=== PATIENT | male | born 1965 | race Caucasian/White ===

== ENCOUNTER 2023-05-02 09:36 | Observation (INO) | payer OTHER ==
[2023-05-02 10:12] LABS: Absolute Lymphocytes (CBC) 1.6 K/uL (0.7-4.9); Hematocrit 43.2 % (39.6-49.0); MCV 97.9 fL (80-100); MPV 7.4 fL (7.6-11.3); Platelets 174 thou/uL (152-406); RBC Red Blood Cell Count 4.41 M/uL (4.33-5.43)
[2023-05-02 10:17] LABS: Protime INR 1.07
[2023-05-02 10:33] LABS: Albumin 3.7 g/dL (3.4-5.0); Bilirubin Direct 0.1 mg/dL (0-0.2); Bilirubin Indirect, Calculated 0.4 mg/dL (0.2-0.8); Bilirubin Total 0.5 mg/dL (0.2-1.0); Potassium 4.2 mEq/L (3.5-5.1); Protein, Total 6.9 g/dL (6.4-8.2); Troponin High Sensitivity 7.7 pg/mL (<58.9)
--- NOTE | 2023-05-02 11:01 | RAD REPORT ---
EXAM DESCRIPTION: [place]oma Single View05/02/2023 10:40 am CLINICAL HISTORY: Chest pain COMPARISON: 2014 FINDINGS: The lungs appear clear of acute infiltrate. The heart is normal size IMPRESSION: No acute abnormalities displayed
--- NOTE | 2023-05-02 12:31 | ER ---
Nurse's Notes [facility] Name: Afshin Jeffrey Age: 57 yrs Sex: Male : 1965 Arrival Date: 05/02/2023 Time: 09:36 Bed 6 Private MD: Diagnosis: Atherosclerotic heart disease of [place] coronary artery with unstable angina pectoris;Peripheral vascular disease, unspecified;Essential (primary) hypertension Presentation: 05/02 09:45 Chief complaint: Patient states: midsternal chest pain for a few days, worse today, hx iw of 4 cardiac stents. Coronavirus screen: At this time, the client does not indicate any symptoms associated with coronavirus-19. Ebola Screen: Patient negative for fever greater than or equal to 101.5 degrees Fahrenheit, and additional compatible Ebola Virus Disease symptoms Patient denies exposure to infectious person. Patient denies travel to an Ebola-affected area in the 21 days before illness onset. No symptoms or risks identified at this time. Initial Sepsis Screen: Does the patient meet any 2 criteria? No. Patient's initial sepsis screen is negative. Does the patient have a suspected source of infection? No. Patient's initial sepsis screen is negative. Risk Assessment: Do you want to hurt yourself or someone else? Patient reports no desire to harm self or others. Onset of symptoms was April 29, 2023. 09:45 Method Of Arrival: Wheelchair iw 09:45 Acuity: ETELVINA 3 iw Historical: - Allergies: 09:49 Fentanyl; iw - Home Meds: 09:49 aspirin 81 mg Oral capsule daily [Active]; famotidine 20 mg Oral tablet 2 times per day iw [Active]; gabapentin 300 mg oral capsule 2 caps 2 times per day [Active]; losartan 50 mg oral tablet daily [Active]; metoprolol succinate 25 mg oral Tablet, Extended Release 24 hr daily [Active]; nicotine 21 mg/24 hr TD patch, transdermal 24 hours [Active]; nitroglycerin 0.4 mg SL Tablet, Sublingual every 5 minutes [Active]; rosuvastatin 20 mg oral tablet daily [Active]; tizanidine 2 mg oral tablet every day at bedtime [Active]; - Immunization history:: Adult Immunizations not up to date. - Social history:: Smoking status: Patient reports the use of cigarette tobacco products, 2-3 cigarettes per day . Screenin:08 [facility] ED Fall Risk Assessment (Adult) History of falling in the last 3 months, mb9 including since admission No falls in past 3 months (0 pts) Confusion or Disorientation No (0 pts) Intoxicated or Sedated No (0 pts) Impaired Gait No (0 pts) Mobility Assist Device Used No (0 pt) Altered Elimination No (0 pt) Score/Fall Risk Level 0 - 2 = Low Risk Oriented to surroundings, Maintained a safe environment, Educated pt \T\ family on fall prevention, incl call for assistance when getting out of bed. Abuse screen: Denies threats or abuse. Nutritional screening: No deficits noted. Tuberculosis screening: No symptoms or risk factors identified. Assessment: 10:07 General: Appears in no apparent distress. Behavior is calm, cooperative, appropriate mb9 for age. Pain: Complains of pain in chest Pain does not radiate. Quality of pain is described as throbbing, Pain began 1-2 weeks ago. Neuro: Nascimento Agitation-Sedation Scale (RASS): 0 - Alert and Calm Level of Consciousness is awake, alert, obeys commands, Oriented to person, place, time, situation, Appropriate for age. Cardiovascular: Reports chest pain, Heart tones S1 S2 present Patient's skin is warm and dry. Respiratory: Reports shortness of breath Airway is patent Respiratory effort is even, unlabored, Respiratory pattern is regular, symmetrical, Breath sounds are clear bilaterally. GI: Abdomen is round non-distended, Bowel sounds present X 4 quads. Abd is soft and non tender X 4 quads. Reports nausea. : No signs and/or symptoms were reported regarding the genitourinary system. EENT: No signs and/or symptoms were reported regarding the EENT system. Derm: Skin is pink, warm \T\ dry. Musculoskeletal: Range of motion: intact in all extremities. 11:30 Reassessment: No changes from previously documented assessment. Patient and/or family mb9 updated on plan of care and expected duration. Pain level reassessed. Patient is alert, oriented x 3, equal unlabored respirations, skin warm/dry/pink. Vital Signs: 09:45 BP 145 / 103; Pulse 62; Resp 16; Pulse Ox 96% on R/A; Weight 88 kg; Height 5 ft. 10 in. iw ; Pain 810; 11:00 BP 141 / 91; Pulse 49; Resp 18; Pulse Ox 100% on R/A; mb9 12:18 BP 142 / 93; Pulse 50; Resp 16; Pulse Ox 100% on R/A; mb9 09:45 Body Mass Index 27.84 (88.00 kg, 177.8 cm) iw 09:45 Pain Scale: Adult iw ED Course: 09:36 Patient arrived in ED. rg4 09:38 Maria Del Rosario Eddy MD is Attending Physician. gb1 09:43 Brittnee Singer, MARVIN is Primary Nurse. mb9 09:45 EKG done, by ED staff, reviewed by Maria Del Rosario Eddy MD. mb9 09:49 Triage completed. iw 09:54 Arm band placed on. iw 10:07 Inserted saline lock: 18 gauge in right forearm, using aseptic technique. mb9 10:08 Placed in gown. Bed in low position. Call light in reach. Side rails up X 1. Client mb9 placed on continuous cardiac and pulse oximetry monitoring. NIBP monitoring applied. hospital monitor on. 10:09 No provider procedures requiring assistance completed. Patient maintains SpO2 mb9 saturation greater than 95% on room air. 10:41 Chest Single View In Process Unspecified. EDMS 12:28 Philippe Calero is Hospitalizing Provider. gb1 13:40 Patient admitted, IV remains in place. mb9 Administered Medications: No medications were administered Medication: 10:09 VIS not applicable for this client. mb9 Outcome: 12:30 Decision to Hospitalize by Provider. gb1 13:40 Condition: stable mb9 13:40 Instructed on the need for admit, 14:46 Admitted to Tele room 410, with chart, Report called to MARVIN Conley 15:11 Patient left the ED. [email or web address] Signatures: Dispatcher [employer] EDMT So Crowley RN RN iw Garcia, Rubi rg4 Brittnee Singer RN RN mb9 Blocker, Gina, MD MD gb1 Corrections: (The following items were deleted from the chart) 14:46 13:40 Admitted to Med/surg room 219, with chart, Report called to Asher alamo
--- NOTE | 2023-05-02 12:31 | EDPHYS ---
Physician Documentation [facility] Name: Afshin Jeffrey Age: 57 yrs Sex: Male : 1965 Arrival Date: 05/02/2023 Time: 09:36 Bed 6 Private MD: ED Physician Maria Del Rosario Eddy HPI: 05/02 12:30 This 57 yrs old Male presents to ER via Wheelchair with complaints of Chest gb1 Pain. 12:30 57-year-old male with chest pain. He has a history of for coronary artery gb1 stents and 2 stents in his bilateral lower extremities. Patient states it has been more of a pressure-like chest pain in the center of his chest without any radiation. He states he is not short of breath but it is worse with activity and is also intermittent. Patient rates his chest discomfort 7 out of 10.. Historical: - Allergies: 09:49 Fentanyl; iw - Home Meds: 09:49 aspirin 81 mg Oral capsule daily [Active]; famotidine 20 mg Oral tablet 2 times per day iw [Active]; gabapentin 300 mg oral capsule 2 caps 2 times per day [Active]; losartan 50 mg oral tablet daily [Active]; metoprolol succinate 25 mg oral Tablet, Extended Release 24 hr daily [Active]; nicotine 21 mg/24 hr TD patch, transdermal 24 hours [Active]; nitroglycerin 0.4 mg SL Tablet, Sublingual every 5 minutes [Active]; rosuvastatin 20 mg oral tablet daily [Active]; tizanidine 2 mg oral tablet every day at bedtime [Active]; - Immunization history:: Adult Immunizations not up to date. - Social history:: Smoking status: Patient reports the use of cigarette tobacco products, 2-3 cigarettes per day . ROS: 12:30 Cardiovascular: Positive for chest pain, gb1 12:30 All other systems are negative, Exam: 12:30 Constitutional: This is a well developed, well nourished patient who is awake, alert, gb1 and in no acute distress. Head/Face: Normocephalic, atraumatic. Eyes: Pupils equal round and reactive to light, extra-ocular motions intact. Lids and lashes normal. Conjunctiva and sclera are non-icteric and not injected. Cornea within normal limits. Periorbital areas with no swelling, redness, or edema. ENT: Nares patent. No nasal discharge, no septal abnormalities noted. Tympanic membranes are normal and external auditory canals are clear. Oropharynx with no redness, swelling, or masses, exudates, or evidence of obstruction, uvula midline. Mucous membranes moist. Neck: Trachea midline, no thyromegaly or masses palpated, and no cervical lymphadenopathy. Supple, full range of motion without nuchal rigidity, or vertebral point tenderness. No Meningismus. Chest/axilla: Normal chest wall appearance and motion. Nontender with no deformity. No lesions are appreciated. Cardiovascular: Regular rate and rhythm with a normal S1 and S2. No gallops, murmurs, or rubs. Normal PMI, no JVD. No pulse deficits. Respiratory: Lungs have equal breath sounds bilaterally, clear to auscultation and percussion. No rales, rhonchi or wheezes noted. No increased work of breathing, no retractions or nasal flaring. Abdomen/GI: Soft, non-tender, with normal bowel sounds. No distension or tympany. No guarding or rebound. No evidence of tenderness throughout. Back: No spinal tenderness. No costovertebral tenderness. Full range of motion. Skin: Warm, dry with normal turgor. Normal color with no rashes, no lesions, and no evidence of cellulitis. MS/ Extremity: Pulses equal, no cyanosis. Neurovascular intact. Full, normal range of motion. Neuro: Awake and alert, GCS 15, oriented to person, place, time, and situation. Cranial nerves II-XII grossly intact. Motor strength 5/5 in all extremities. Sensory grossly intact. Cerebellar exam normal. Normal gait. Psych: Awake, alert, with orientation to person, place and time. Behavior, mood, and affect are within normal limits. Vital Signs: 09:45 BP 145 / 103; Pulse 62; Resp 16; Pulse Ox 96% on R/A; Weight 88 kg; Height 5 ft. 10 in. iw ; Pain 8/10; 11:00 BP 141 / 91; Pulse 49; Resp 18; Pulse Ox 100% on R/A; mb9 12:18 BP 142 / 93; Pulse 50; Resp 16; Pulse Ox 100% on R/A; mb9 09:45 Body Mass Index 27.84 (88.00 kg, 177.8 cm) iw 09:45 Pain Scale: Adult iw Procedures: 12:30 Patient's EKG is normal sinus rhythm with normal intervals and axis. EKG was completed gb1 at 9:42 AM.. MDM: 09:54 Patient medically screened. gb1 12:30 HEART Score: History: Highly Suspicious (2), ECG: Normal (0), Age: > 45 and < 65 years gb1 (1), Risk Factors: > or = 3 Risk factors for atherosclerotic disease (2), Troponin: < or = 1 x Normal Limit (0), Total Score = 5. 12:33 Consideration of Admission/Observation Patient was admitted/placed on observation. Have [facility] admitted the patient to Dr[facility].. 12:34 Data reviewed: vital signs, nurses notes, lab test result(s), cardiac enzymes, CBC, EKG.[facility] 05/02 10:10 Order name: Basic Metabolic Panel; Complete Time: 10:38 EDTN 05/02 10:10 Order name: Liver (Hepatic) Function; Complete Time: 10:38 EDTN 05/02 10:10 Order name: Troponin High Sensitivity; Complete Time: 10:38 EDMS 05/02 10:10 Order name: NT PRO-BNP; Complete Time: 10:38 EDMS 05/02 10:10 Order name: CBC with Automated Diff; Complete Time: 10:24 EDMS 05/02 10:10 Order name: Protime (+INR); Complete Time: 10:24 EDMS 05/02 11:28 Order name: Troponin High Sensitivity; Complete Time: 11:56 EDMS 05/02 13:39 Order name: Hemoglobin A1c EDTN 05/02 13:39 Order name: T4 Free EDTN 05/02 13:39 Order name: Thyroid Stimulating Hormone EDTN 05/02 13:39 Order name: Basic Metabolic Panel EDTN 05/02 13:39 Order name: Basic Metabolic Panel EDTN 05/02 13:39 Order name: Basic Metabolic Panel EDTN 05/02 13:39 Order name: Basic Metabolic Panel EDTN 05/02 13:39 Order name: CBC with Automated Diff EDMS 05/02 13:39 Order name: CBC with Automated Diff EDMS 05/02 13:39 Order name: CBC with Automated Diff EDMS 05/02 13:39 Order name: CBC with Automated Diff EDMS 05/02 13:39 Order name: Lipid Profile EDTN 05/02 13:39 Order name: Lipid Profile EDMS 05/02 13:39 Order name: Troponin High Sensitivity EDMS 05/02 13:39 Order name: Troponin High Sensitivity EDMS 05/02 13:39 Order name: Troponin High Sensitivity EDMS 05/02 09:59 Order name: Chest Single View; Complete Time: 11:07 EDMS 05/02 13:39 Order name: Echo with Doppler EDMS 05/02 09:38 Order name: EKG; Complete Time: 11:29 gb1 05/02 13:39 Order name: CONS Physician Consult EDMS 05/02 09:38 Order name: Cardiac monitoring; Complete Time: 09:54 gb1 05/02 09:38 Order name: EKG - Nurse/Tech; Complete Time: 09:54 gb1 05/02 09:38 Order name: IV Saline Lock; Complete Time: 10:07 gb1 05/02 09:38 Order name: Labs collected and sent; Complete Time: 10:07 gb1 05/02 09:38 Order name: O2 Per Protocol; Complete Time: 09:54 gb1 05/02 09:38 Order name: O2 Sat Monitoring; Complete Time: 09:54 gb1 Administered Medications: No medications were administered Disposition: 12:30 Co-signature as Attending Physician, Maria Del Rosario Eddy MD. [facility] 12:34 Chart complete. Chart complete. gb1 Disposition Summary: 05/02/23 12:30 Hospitalization Ordered Notes: Hospitalization Status: Inpatient Admission gb1 Provider: Philippe Calero [facility] Location: Telemetry/MedSurg (observation) gb1 Condition: Stable gb1 Problem: new gb1 Symptoms: have worsened gb1 Bed/Room Type: Standard [facility] Room Assignment: 414(05/02/23 14:28) bd Diagnosis - Atherosclerotic heart disease of [place] coronary artery with unstable angina gb1 pectoris - Peripheral vascular disease, unspecified gb1 - Essential (primary) hypertension 1 Forms: - Medication Reconciliation Form gb1 - SBAR form gb1 - Leadership Thank You Letter gb1 Signatures: Dispatcher [employer] EDMS Jodie Cormier Irene, MARVIN RN Maria Del Rosario Douglas MD MD gb Corrections: (The following items were deleted from the chart) 11:40 11:29 Chest Single View+RAD.RAD.BRZ ordered. EDMS EDMS 13:18 11:29 PROTIME (+INR)+COAG.LAB.BRZ ordered. EDMS EDMS 13:19 11:29 CBC+H.LAB.BRZ ordered. EDMS EDMS 13:24 11:29 BASIC METABOLIC PANEL+C.LAB.BRZ ordered. EDMS EDMS 13:24 11:29 HEPATIC FUNCTION+C.LAB.BRZ ordered. EDMS EDMS 13:24 11:29 PROBNP+C.LAB.BRZ ordered. EDMS EDMS 13:24 11:29 Troponin High Sensitivity+C.LAB.BRZ ordered. EDMS EDMS 13:24 11:29 Troponin High Sensitivity+C.LAB.BRZ ordered. EDMS EDMS 14:28 12:30 gb1 bd
[2023-05-02] MEDS ORDERED: HYDRALAZINE HCL 20 MG/ML VIAL IV PRN (13:28)
[2023-05-02] MEDS ORDERED: MORPHINE 4 MG/ML SYR IV PRN (13:28)
[2023-05-02] MEDS ORDERED: NITROGLYCERIN 0.4 MG/TAB SL PRN (13:28)
[2023-05-02] MEDS ORDERED: ACETAMINOPHEN 500 MG TAB PO PRN (13:38)
[2023-05-02] MEDS ORDERED: ACETAMINOPHEN 325 MG TABLET PO PRN (13:39)
[2023-05-02] MEDS ORDERED: NITROGLYCERIN 0.4 MG/HR (10 MG) PATCH TD SCH (14:00)
--- NOTE | 2023-05-02 14:02 | P.HP ---
Certification for Inpatient Patient admitted to: Observation With expected LOS: <2 Midnights Patient will require the following post-hospital care: None Practitioner: I am a practitioner with admitting privileges, knowledge of patient current condition, hospital course, and medical plan of care. Services: Services provided to patient in accordance with Admission requirements found in Title 42 Section 412.3 of the Code of Federal Regulations Patient History Date of Service: 05/02/23 Reason for admission: chest pain r/o [place] History of Present Illness: Afshin Jeffrey is a 57-year-old male with past medical history of hypertension, CAD (stents times 26 July 2022), GERD, 2 stents in bilateral lower extremities (dec 2022), and smoking abuse who presents to the ED complaining of chest pain including his shoulders bilaterally and left arm tingling for a few days but has worsened today. He reports the pain is not the same as when he had his stents p laced in July 2022. Family is at the bedside and reports he experiences a low heart rate while sleeping but does not have pain during this time. His commercial administrator is Dr. Barrera at [facility]. EKG is normal sinus rhythm with normal intervals and axis. Laboratory evaluation troponin 7.7/8.3, BNP 43, sodium 139, potassium 4.2. Initial vitals BP 145 / 103; Pulse 62; Resp 16; Pulse Ox 96% on R/A. Chest xray reports "The lungs appear clear of acute infiltrate. The heart is normal size, No acute abnormalities displayed." Afshin will be admitted to hospitalist service for further evaluation and treatm ent of chest pain rule out [place], unstable angina. Allergies No Known Allergies Allergy (Unverified 05/02/23 15:27) Home Medications: Aspirin [Aspirin EC] 81 mg PO DAILY 05/02/23 Famotidine 20 mg PO BID 05/02/23 Gabapentin 600 mg PO BID 05/02/23 Losartan Potassium 50 mg PO DAILY 05/02/23 Metoprolol Succinate 25 mg PO DAILY 05/02/23 Nicotine [Nicotine Patch] 21 mg TD DAILY 05/02/23 Nitroglycerin 0.4 mg SL Q5MX3, Q15MX1, Q30M PRN 05/02/23 Rosuvastatin Calcium 20 mg PO DAILY 05/02/23 Tizanidine HCl 2 mg PO BEDTIME 05/02/23 Review of Systems Eyes: Unremarkable Respiratory: Unremarkable Cardiovascular: Chest Pain, Light Headedness Gastrointestinal: Unremarkable Genitourinary: Unremarkable Musculoskeletal: Shoulder Pain (bilateral) Integumentary: Unremarkable Neurological: Weakness, Other Physical Examination - Physical Exam General: Alert, In no apparent distress, Oriented x3 HEENT: Atraumatic, Normocephalic, PERRLA Neck: Supple, JVD not distended Respiratory: Clear to auscultation bilaterally, Normal air movement Cardiovascular: No edema, Normal pulses, Regular rate/rhythm, Normal S1 S2 Capillary refill: <2 Seconds Gastrointestinal: Normal bowel sounds, Soft and benign Musculoskeletal: No clubbing, No swelling, No contractures, No erythema Integumentary: No rashes, No breakdown, No significant lesion, No tenderness/swelling Neurological: Normal speech, Normal strength at 5/5 x4 extr, Normal tone - Studies Laboratory Data (last 24 hrs) 05/02/23 05/02/23 05/02/23 10:02 10:02 10:02 WBC 5.30 Hgb 14.9 Hct 43.2 Plt Count 174 PT 11.8 INR 1.07 Sodium 139 Potassium 4.2 BUN 21 H Creatinine 0.98 Glucose 93 Total Bilirubin 0.5 AST 17 ALT 35 Alkaline Phosphatase 81 05/02/23 05/02/23 05/02/23 09:38 09:38 09:38 WBC Cancelled Hgb Cancelled Hct Cancelled Plt Count Cancelled PT Cancelled INR Cancelled Sodium Cancelled Potassium Cancelled BUN Cancelled Creatinine Cancelled Glucose Cancelled Total Bilirubin Cancelled AST Cancelled ALT Cancelled Alkaline Phosphatase Cancelled Assessment and Plan - Plan Assessment and plan Chest pain rule out [place] in patient status post 4 stents Unstable angina -EKG is normal sinus rhythm with normal intervals and axis. No obvious ST elevation or depression -Initial vitals BP 145 / 103; Pulse 62; Resp 16; Pulse Ox 96% on R/A. -Chest xray reports "The lungs appear clear of acute infiltrate. The heart is normal size, No acute abnormalities displayed." - troponin 7.7/8.3, serial pending, BNP 43 - Ordered transthoracic echocardiogram - Consult Cardiology - recommendations appreciated - Symptom control with PRN acetaminophen, nitroglycerin, morphine - Daily aspirin and statin - Lipid panel, A1c, TSH/free T4- pending History of hypertension History of GERD -Restart home medication Smoking abuse -Patient education -Nicotine patch VTE PPx Lovenox Full code LOS 2 days Discharge Plan: Home Plan to discharge in: 24 Hours - Advance Directives Does patient have a Living Will: No Does patient have a Durable POA for Healthcare: No Time Spent Managing Pts Care (In Minutes): 55
[2023-05-02] MEDS: ENOXAPARIN 40 MG/0.4 ML SQ SCH ×2 (15:28→18:19)
[2023-05-02] MEDS: NITROGLYCERIN 0.4 MG/HR (10 MG) PATCH TD SCH (15:29)
[2023-05-02 15:45] VITALS: BMI 27.8
[2023-05-02] MEDS: GABAPENTIN 300 MG CAP PO SCH (20:31)
[2023-05-02] MEDS: ROSUVASTATIN 10 MG TAB PO SCH (20:31)
--- NOTE | 2023-05-02 21:15 | CON ---
Date of Consultation: 05/02/2023 Reason For Consultation: Chest pain. History Of Present Illness: This is a 57-year-old male with complex coronary artery disease, status post multiple stent placement and heart attacks in the past, presents with chest pain, pressure like, left sided. It radiates to the neck and to the shoulder, and it is on and off, and it is getting wo rse and more progressive. 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 The next available appointment was in June, so he pr esented to the emergency room. He at the present time has chest pain that is varying between 3 to 4 in intensity and comes and goes. Past Medical History: Coronary artery disease, status post multiple PCIs; hypertension; and dyslipid emia. Medications: Refer to reconciliation sheet for detailed list. Allergies: NO KNOWN DRUG ALLERGIES. Family History: No premature coronary artery disease or cancer. Social History: He is an ex-smoker. Does not drink or use any drugs. Review of Systems: All systems were reviewed and they were negative except mentioned in the HPI. Physical Examination: Vital Signs: Reviewed. Head and Neck: Pupils are equal, reactive to light. Intact eye movements. No JVD. No cervical lym phadenopathy. Neck is supple. Thyroid is not enlarged. Lungs: Clear to auscultation bilaterally. No rhonchi, rales, or crackles. No accessory muscle use. Heart: Regular rate and rhythm. No extra sounds. Abdomen: Soft, nontender. Bowel sounds positive. No organomegaly. No masses or hernia. No rigidi ty or rebound. Extremities: No edema, clubbing, cyanosis. Intact pulses. Skin: No rash. Neurologic: Alert, awake, oriented x3. No acute focal deficits appreciated. Investigations: Labs were reviewed. Troponins x2 are negative. Creatinine 0.98. Hemoglobin is 14. 9. Assessment/recommendation: 1.Chest pain. No history of coronary artery disease. Pain is typical and not going away. Eases up and gets worse again, and this is likely unstable angina. Keep n.p.o. past midnight. Plan for shona nary angiogram tomorrow. Continue aspirin and nitroglycerin patch 1 inch q.8 hours to the upper ches t as needed for pain control and morphine sulfate. 2.Dyslipidemia. Continue statin. 3.Hypertension. Blood pressure is acceptable. 4.Smoker. The patient was counseled to quit smoking. /APRIL Voice ID: [id number] Report ID: [id number]
[2023-05-02] MEDS ORDERED: NITROGLYCERIN 0.1 MG/HR (2.5 MG) PATCH TD ONE ×2 (21:36→21:40)
[2023-05-03 03:55] LABS: Absolute Lymphocytes (CBC) 2.1 K/uL (0.7-4.9); Hematocrit 39.7 % (39.6-49.0); Lymphocytes % 40.6 % (15.3-44.8); MCV 98.3 fL (80-100); MPV 7.8 fL (7.6-11.3); Platelets 149 thou/uL (152-406); RBC Red Blood Cell Count 4.04 M/uL (4.33-5.43)
[2023-05-03 04:11] LABS: Potassium 3.9 mEq/L (3.5-5.1); Thyroid Stimulating Hormone 1.11 uIU/mL (0.358-3.740)
[2023-05-03] MEDS ORDERED: POTASSIUM CL SA 10 MEQ TAB PO ONE (04:50)
[2023-05-03] MEDS: NITROGLYCERIN 0.4 MG/HR (10 MG) PATCH TD SCH (05:08)
[2023-05-03] MEDS: ASPIRIN EC 81 MG TAB PO SCH (08:21)
[2023-05-03] MEDS: GABAPENTIN 300 MG CAP PO SCH ×2 (08:22→19:55)
[2023-05-03] MEDS ORDERED: NITROGLYCERIN 0.1 MG/HR (2.5 MG) PATCH TD SCH (09:00)
--- NOTE | 2023-05-03 16:05 | P.PN ---
Date of Service: 05/03/23 Gokul Pepe is awake and comfortable this morning Chest pain remains the same as yesterday Plan for C and echocardiogram today ROS 10 point ROS as noted above, otherwise negative Physical Exam General: Alert, In no apparent distress, Oriented x3 HEENT: Atraumatic, Normocephalic, PERRLA Neck: Supple, JVD not distended Respiratory: Clear to auscultation bilaterally, Normal air movement, symmetrical chest wall movement Cardiovascular: No edema, Normal pulses, Regular rate/rhythm, Normal S1 S2, no murmur Capillary refill: <2 Seconds Gastrointestinal: Normal bowel sounds, Soft and benign, nontender Musculoskeletal: No clubbing, No swelling, No contractures, No erythema Integumentary: No rashes, No breakdown, No significant lesion, No tenderness/swelling Neurological: Normal speech, Normal strength at 5/5 x4 extr, Normal tone Vitals Reviewed Problem list Chest pain rule out [place] in patient status post 4 stents Unstable angina History of hypertension History of GERD Smoking abuse Assessment and Plan Chest pain rule out [place] in patient status post 4 stents Unstable angina -EKG is normal sinus rhythm with normal intervals and axis. No obvious ST elevation or depression -Initial vitals BP 145 / 103; Pulse 62; Resp 16; Pulse Ox 96% on R/A. -Chest xray reports "The lungs appear clear of acute infiltrate. The heart is normal size, No acute abnormalities displayed." - serial troponin 7.7/8.3/7.2/8.8, BNP 43 - Ordered transthoracic echocardiogram- result pending - Consult Cardiology - recommendations appreciated - Symptom control with PRN acetaminophen, nitroglycerin, morphine - Daily aspirin and statin - Lipid panel- unremarkable, A1c 5.0, TSH/free T4 1.110/0.75 - [facility] results (05/03) pending History of hypertension History of GERD -Restart home medication- losartan and metoprolol Smoking abuse -Patient education -Nicotine patch VTE PPx Lovenox Full code LOS 2 days Time Spent Managing Pts Care (In Minutes): 20
[2023-05-03] MEDS ORDERED: HEPA 1000U/500MLS 2,000 UNIT/1,000 ML BAG IV ONE (16:14)
[2023-05-03] MEDS ORDERED: LIDOCAINE 1% 20 ML MDV ONE (16:14)
[2023-05-03] MEDS ORDERED: MIDAZOLAM HCL 2 MG/2 ML INJ ONE (16:19)
[2023-05-03] MEDS ORDERED: VERAPAMIL HCL 10 MG/4 ML VIAL IV ONE (16:19)
[2023-05-03] MEDS ORDERED: HEPARIN 5000 UNIT/ML 1 ML VIAL ONE (16:19)
[2023-05-03] MEDS ORDERED: FENTANYL CITR 100 MCG/2 ML ONE (16:19)
[2023-05-03] MEDS ORDERED: ATROPINE SULF 1 MG/10 ML SYR IV ONE (16:19)
[2023-05-03] MEDS ORDERED: ASPIRIN 325 MG TAB ONE (16:20)
[2023-05-03] MEDS ORDERED: CLOPIDOGREL 75 MG TABLET ONE (16:20)
[2023-05-03] MEDS ORDERED: TICAGRELOR 90 MG TABLET PO ONE (16:20)
[2023-05-03] MEDS ORDERED: HEPARIN 10,000 UNIT/10 ML VIAL IV ONE (16:20)
[2023-05-03] MEDS ORDERED: NA CHLORIDE 0.9% 500 ML ONE (16:26)
[2023-05-03] MEDS: METOPROLOL XL 25 MG TAB PO SCH (17:00)
[2023-05-03] MEDS: LOSARTAN POTASSIUM 50 MG TABLET PO SCH (17:00)
--- NOTE | 2023-05-03 17:37 | EKG ---
Test Date: 2023-05-02 Test Time: 09:42:44 Wire Technician: KAYLA MEASUREMENT RESULTS: Intervals: Rate: 60 NM: 164 QRSD: 82 QT: 424 QTc: 424 [place]: P: 77 NM: 164 QRS: 72 T: 84 INTERPRETIVE STATEMENTS: Normal sinus rhythm Normal ECG Compared to ECG 05/05/2014 10:46:04 Sinus bradycardia no longer present Electronically Signed On 05-03-23 17:34:21 TEXTILE COLORIST DYER by Andrews Tam
--- NOTE | 2023-05-03 17:40 | OP ---
Date of Procedure: 05/03/2023 Surgeon: REJI DOMINGUEZ Procedures Performed: 1.Selective coronary angiogram. 2.Left heart catheterization. Indication: Unstable angina. Access: Right radial artery 6-Cuban closed with TR band. Complications: None. Bleeding: Less than 20 mL. Description Of Procedure: After risks, benefits, alternatives were explained, patient agreed to proc edure and signed informed consent. The patient was brought into cardiac catheterization laboratory, prepped and draped in the usual sterile fashion. Then, I accessed right radial artery using [employer] micropuncture kit, placed a 6-Cuban Slender sheath and then I took 5-Cuban [place] 4.0 catheter int o the aortic root over a J-wire, engaged the left main and the right coronary artery, took standard v iews and then catheter was pushed over the wire into the LV, measured the LVEDP. Pullback did not re cord any gradient. Then I removed the catheter and the sheath and placed TR band with good hemostasi s. Findings: 1.Left main; large and normal. 2.LAD; proximal 30% to 40% stenosis, then widely patent stent. The rest of the LAD is normal. Norm al diagonal branches. 3.Left circumflex; very large and dominant. It has in the proximal segment focal 40% to 50% stenosi s and then widely patent stent, and it supplies the entire inferior wall. 4.RCA; it is small and nondominant and MAIL ROOM CLERK, 100% occluded proximally with collaterals from the left. 5.LVEDP is normal at 5 mmHg. Conclusion: 1.Widely patent LAD and left circumflex stent and MAIL ROOM CLERK of proximal RCA with collaterals from the righ t. 2.Moderate coronary artery disease elsewhere. 3.Normal LVEDP. Recommendation: Medical management. SR/MODL Voice ID: [id number] Report ID: [id number]
--- NOTE | 2023-05-03 17:55 | PN ---
Date of Progress Note: 05/03/2023 Subjective: Seen by bedside. He is still having chest pain on and off. Denies having any nausea, v omiting, or diarrhea. No dysuria, polyuria, or urinary urgency. All other systems were reviewed, th ey were negative. Objective: Vital Signs: Reviewed. Head and Neck: Pupils are equal, reactive to light. Intact eye movements. No JVD. No cervical lym phadenopathy. Neck is supple. Thyroid is not enlarged. Lungs: Clear to auscultation bilaterally. No rhonchi, wheezing, or crackles. No accessory muscle u se. Heart: Regular rate and rhythm. No extra sounds. Abdomen: Soft, nontender. Bowel sounds positive. No organomegaly. No masses or hernia. No rigidi ty or rebound. Extremities: No edema, clubbing, or cyanosis. Intact pulses. Skin: No rash or nodule. Neurological: Alert, awake, oriented x3. No acute focal deficits appreciated. Lymph Nodes: No cervical or axillary lymphadenopathy. Investigations: Labs were reviewed. Troponins are negative. Assessment And Recommendation: 1.Unstable angina. Negative troponins. I did a coronary angiogram on him and his heart is well vas cularized. No need for intervention. I recommend to start Imdur 30 mg daily and also search for oth er causes of chest pain, specifically rule out pulmonary embolism or GI as a cause of his symptoms. 2.Peripheral vascular disease, status post intervention in the past and he is asymptomatic. 3.Dyslipidemia. Recommend Lipitor 40 mg q.h.s. From Cardiology standpoint, patient can be released and follow up as an outpatient. /APRIL Voice ID: [id number] Report ID: [id number]
[2023-05-03] MEDS: ROSUVASTATIN 10 MG TAB PO SCH (19:55)
[2023-05-04 00:21] VITALS: O2SAT 94
--- NOTE | 2023-05-04 07:00 | ECHO ---
HEIGHT: 5 ft 10 in WEIGHT: 194 lb 0 oz DATE OF STUDY: 05/03/[address]: Ashley Almanzar NP 2-DIMENSIONAL: YES M.MODE: YES DOPPLER: YES COLOR FLOW: YES TDS: PORTABLE: YES DEFINITY: BUBBLE STUDY: DIAGNOSIS: CHEST PAIN CARDIAC HISTORY: CATHERIZATION: SURGERY: PROSTHETIC VALVE: PACEMAKER: MEASUREMENTS (cm) DIASTOLIC (NORMALS) SYSTOLIC (NORMALS) IVSd 1.3 (0.6-1.2) LA Diam (1.9-4.0) LVEF 73% LVIDd 4.6 (3.5-5.7) LVIDs 2.6 (2.0-3.5) %FS 42% LVPWd 1.2 (0.6-1.2) Ao Diam 3.2 (2.0-3.7) 2 DIMENSIONAL ASSESSMENT: RIGHT ATRIUM: NORMAL LEFT ATRIUM: NORMAL RIGHT VENTRICLE: NORMAL LEFT VENTRICLE: LEFT VENTRICULAR HYPERTROPHY TRICUSPID VALVE: NORMAL MITRAL VALVE: NORMAL PULMONIC VALVE: NORMAL AORTIC VALVE: NORMAL PERICARDIAL EFFUSION: NONE AORTIC ROOT: NORMAL LEFT VENTRICULAR WALL MOTION: NORMAL DOPPLER/COLOR FLOW: NORMAL COMMENTS: 1. NORMAL LEFT VENTRICULAR EJECTION FRACTION 60-65% 2. NORMAL WALL MOTION\ 3. GRADE I DIASTOLIC DYSFUNCTION 4. MILD CONCENTRIC LEFT VENTRICULAR HYPERTROPHY TECHNOLOGIST: MARLON HERRING
[2023-05-04 07:21] LABS: Absolute Lymphocytes (CBC) 1.5 K/uL (0.7-4.9); Hematocrit 40.9 % (39.6-49.0); Lymphocytes % 34.4 % (15.3-44.8); MCV 96.5 fL (80-100); MPV 7.8 fL (7.6-11.3); Platelets 170 thou/uL (152-406); RBC Red Blood Cell Count 4.24 M/uL (4.33-5.43)
[2023-05-04 07:29] LABS: Potassium 4.2 mEq/L (3.5-5.1)
[2023-05-04] MEDS: ENOXAPARIN 40 MG/0.4 ML SQ SCH (08:35)
[2023-05-04] MEDS: METOPROLOL XL 25 MG TAB PO SCH (08:35)
[2023-05-04] MEDS: ASPIRIN EC 81 MG TAB PO SCH (08:35)
[2023-05-04] MEDS: LOSARTAN POTASSIUM 50 MG TABLET PO SCH (08:36)
[2023-05-04] MEDS: NITROGLYCERIN 0.4 MG/HR (10 MG) PATCH TD SCH (08:36)
[2023-05-04] MEDS: GABAPENTIN 300 MG CAP PO SCH (08:36)
--- NOTE | 2023-05-04 09:33 | RAD REPORT ---
EXAM DESCRIPTION: CT - Chest Angio - 05/04/2023 8:27 am CLINICAL HISTORY: Chest pain COMPARISON: May 02, 2023 chest x-ray TECHNIQUE: Dynamically enhanced axial 3 mm thick images of the chest were obtained during administra tion of 100 mL Isovue 370 IV contrast. Coronal and oblique reconstruction images were generated and r eviewed. Exam utilizes a protocol for optimal evaluation of pulmonary arterial tree. Maximum intensity projections 3D imaging was utilized All CT scans are performed using dose optimization technique as appropriate and may include automated exposure control or mA/KV adjustment according to patient size. FINDINGS: A pulmonary embolus is not seen. A thoracic aortic aneurysm is not noted. A pleural effusion is not seen. A pericardial effusion is not seen. A lung consolidation is not present. Mild paraseptal emphysema IMPRESSION: Negative for a pulmonary embolism.
--- NOTE | 2023-05-04 11:20 | P.DS ---
Admission Date: 05/02/23 Discharge Date: 05/04/23 Disposition: ROUTINE DISCHARGE Discharge Condition: GOOD Reason for Admission: chest pain r/o NH Brief History of Present Illness: Problem list Chest pain rule out NH in patient status post 4 stents Unstable angina History of hypertension History of GERD Smoking abuse Afshin Jeffrey is a 57-year-old male with past medical history of hypertension, CAD (stents times 26 July 2022), GERD, 2 stents in bilateral lower extremities (dec 2022), and smoking abuse who presents to the ED complaining of chest pain including his shoulders bilaterally and left arm tingling for a few days but has worsened today. He reports the pain is not the same as when he had his stents placed in July 2022. Family is at the bedside and reports he experiences a low heart rate while sleeping but does not have pain during this time. 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 Barrera at [facility]. EKG is normal sinus rhythm with normal intervals and axis. Laboratory evaluation troponin 7.7/8.3, BNP 43, sodium 139, potassium 4.2. Initial vitals BP 145 / 103; Pulse 62; Resp 16; Pulse Ox 96% on R/A. Chest xray reports "The lungs appear clear of acute infiltrate. The heart is normal size, No acute abnormalities displayed." Afshin will be admitted to hospitalist service for further evaluation and treatment of chest pain rule out NH, unstable angina. Hospital Course: Afshin Jeffrey is a pleasant 57 year old male with a past medical history significant for hypertension, CAD (stents times 26 July 2022), GERD, 2 stents in bilateral lower extremities (dec 2022), and smoking abuse who was admitted to the [facility] on 05/02/23 for chest pain r/o NH. Afshin Jeffrey presented to the ED with complaints of chest pain including his shoulders bilaterally and left arm is tingling for approximately a few days but has become worse the day of arrival. Troponins were found negative, BNP was 43, EKG showing normal sinus rhythm. Dr. Tam was consulted for further recommendations. Echo revealed normal EF, grade 1 diastolic dysfunction, normal wall motion. CT chest angio reporting negative for a pulmonary embolism. Dr. Tam performed a left heart cath showing his heart is well vascularized requiring no intervention. Dr. Tam recommends Imdur 30 mg daily and has cleared him for discharge. Afshin is hemodynamically stable, ambulating independently, tolerating p.o. diet, tolerating left heart cath well, and is ready for discharge. Education provided for smoking cessation. On 05/04/23, Afshin was seen on morning rounds and deemed medically stable for discharge. Afshin was discharged with instructions to schedule follow-up appointments with PCP and Dr. Tam. Afshin was provided prescriptions for Imdur. The patient and family members were given the opportunity to ask questions and reported no further questions. Furthermore, all questions were answered to the best of my ability. A copy of this discharge summary will be sent to the above providers to facilitate continuity of care. Today, I personally spent 50 minutes with Afshin, of which greater than 50% of the time was spent in patient education, counseling, and coordination of care as described above. Physical Exam General: Alert, In no apparent distress, Oriented x3 HEENT: Atraumatic, Normocephalic, PERRLA Neck: Supple, JVD not distended Respiratory: Clear to auscultation bilaterally, Normal air movement, symmetrical chest wall movement Cardiovascular: No edema, Normal pulses, Regular rate/rhythm, Normal S1 S2, no murmur Capillary refill: <2 Seconds Gastrointestinal: Normal bowel sounds, Soft and benign, nontender Musculoskeletal: No clubbing, No swelling, No contractures, No erythema Integumentary: No rashes, No breakdown, No significant lesion, No tenderness/swelling Neurological: Normal speech, Normal strength at 5/5 x4 extr, Normal tone Vital Signs/Physical Exam: Temp Pulse Resp BP Pulse Ox 98.0 F 58 17 176/90 H 93 05/04/23 08:00 05/04/23 08:00 05/04/23 08:00 05/04/23 08:35 05/04/23 08:00 Laboratory Data at Discharge: WBC 4.50 thou/uL (4.3-10.9) 05/04/23 06:10 Hgb 14.4 g/dL (13.6-17.9) 05/04/23 06:10 Hct 40.9 % (39.6-49.0) 05/04/23 06:10 Plt Count 170 thou/uL (152-406) 05/04/23 06:10 PT 11.8 SECONDS (9.5-12.5) 05/02/23 10:02 INR 1.07 05/02/23 10:02 Sodium 139 mEq/L (136-145) 05/04/23 06:10 Potassium 4.2 mEq/L (3.5-5.1) 05/04/23 06:10 BUN 20 mg/dL (7-18) H 05/04/23 06:10 Creatinine 0.92 mg/dL (0.70-1.30) 05/04/23 06:10 Glucose 95 mg/dL (74-106) 05/04/23 06:10 Total Bilirubin 0.5 mg/dL (0.2-1.0) 05/02/23 10:02 AST 17 U/L (15-37) 05/02/23 10:02 ALT 35 U/L (16-61) 05/02/23 10:02 Alkaline Phosphatase 81 U/L (45-117) 05/02/23 10:02 Triglycerides 103 mg/dL (<150) 05/02/23 11:16 Cholesterol 111 mg/dL (<200) 05/02/23 11:16 HDL Cholesterol 40 mg/dL (40-60) 05/02/23 11:16 Cholesterol/HDL Ratio 2.78 05/02/23 11:16 Home Medications: Aspirin [Aspirin EC] 81 mg PO DAILY 05/02/23 Famotidine 20 mg PO BID 05/02/23 Gabapentin 600 mg PO BID 05/02/23 Losartan Potassium 50 mg PO DAILY 05/02/23 Metoprolol Succinate 25 mg PO DAILY 05/02/23 Nicotine [Nicotine Patch] 21 mg TD DAILY 05/02/23 Nitroglycerin 0.4 mg SL Q5MX3, Q15MX1, Q30M PRN 05/02/23 Rosuvastatin Calcium 20 mg PO DAILY 05/02/23 Tizanidine HCl 2 mg PO BEDTIME 05/02/23 Isosorbide Mononitrate [Isosorbide Mononitrate ER] 30 mg PO DAILY 30 Days #30 tab 05/04/23 Nitroglycerin [Nitrostat*] 0.4 mg SL UD PRN tab 05/04/23 Rosuvastatin [Crestor*] 40 mg PO BEDTIME tab 05/04/23 New Medications: Isosorbide Mononitrate [Isosorbide Mononitrate ER] 30 mg PO DAILY 30 Days #30 tab Physician Discharge Instructions: 1. Please call and schedule a follow-up appointment with your PCP in 3-5 days - Please follow-up with your PCP for medication refills/adjustments 2. Please call and schedule a follow-up appointment with Dr. Tam in one week for continued medical management 3. Continue heart healthy diet 4. New medication Imdur [address] Rodriguez's recommendation 5. 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 Return to ED if symptoms worsen Diet: AHA Activity: No lifting more than 10 lbs Followup: Ethan Khan DO [Primary Care Provider] - (F/U in 3-5 days) Andrews Tam MD [ACTIVE - CAN ADMIT] - 1 Week Time spent managing pt's care (in minutes): 50
[2023-05-04 14:36] VITALS: BP 179/103; TEMP 97
== END 2023-05-04 13:35 | disposition home or self-care (01) ==
LOC: ER 09:36 → ERHOLD 13:40 → 4TH 14:45
PROVIDERS: ADMIT Internal Medicine; ATTEND Internal Medicine
PROC: 4A023N7 Measurement of Cardiac Sampling and Pressure, Left Heart, Percutaneous Approach (ICD-10-PCS; principal; 2023-05-03)
PROC: B2111ZZ Fluoroscopy of Multiple Coronary Arteries using Low Osmolar Contrast (ICD-10-PCS; 2023-05-03)
DX: I25.110 Atherosclerotic heart disease of native coronary artery with unstable angina pectoris (principal); I25.82 Chronic total occlusion of coronary artery; I73.9 Peripheral vascular disease, unspecified; I10 Essential (primary) hypertension; E78.5 Hyperlipidemia, unspecified; K21.9 Gastro-esophageal reflux disease without esophagitis; Z95.5 Presence of coronary angioplasty implant and graft; Z95.828 Presence of other vascular implants and grafts; F17.210 Nicotine dependence, cigarettes, uncomplicated; Z71.6 Tobacco abuse counseling; Z79.82 Long term (current) use of aspirin; Z79.899 Other long term (current) drug therapy; Z88.8 Allergy status to other drugs, medicaments and biological substances
CPT/HCPCS: 93005; 93306; 85025 ×3; 80048 ×3; 36415 ×2; 85610; 80061; 85379; 80076; 84443; 83036; 84484 ×4; 84439; 83880; 71275; 71045; 93458; 76937; 99285; Q9967; C1893; Q9966; J1644; J0360; J2001; J1650; J2250; J3010; J7040; G0378 ×4; 99152; 99153; J0461

== ENCOUNTER 2024-05-20 10:00 | Inpatient (IN) | payer OTHER ==
[2024-05-20] MEDS ORDERED: NA CHLORIDE 0.9% 1,000 ML ONE (11:06)
[2024-05-20] MEDS ORDERED: FAMOTIDINE 20 MG/2 ML VIAL IV ONE (11:06)
[2024-05-20 11:13] LABS: Absolute Lymphocytes (CBC) 0.9 K/uL (0.7-4.9); Absolute Monocytes 0.3 K/uL (0.1-1.3); Absolute Neutrophil 4.9 K/uL (1.8-8.0); Basophils % 0.3 % (0-1.3); Eosinophils % 0.6 % (0-4.4); Hematocrit 36.9 % (39.6-49.0); Hemoglobin 13.1 g/dL (13.6-17.9); Lymphocytes % 14.1 % (15.3-44.8); MCH 34.4 pg (27.0-35.0); MCHC 35.4 g/dL (32.0-36.0); MCV 97.3 fL (80-100); MPV 7.5 fL (7.6-11.3); Monocytes % 4.5 % (3.3-12.3); Neutrophils % 80.5 % (41.7-73.7); Nucleated Red Blood Cells % 0.1 % (0-0); Platelets 150 thou/uL (152-406); RBC Red Blood Cell Count 3.79 M/uL (4.33-5.43); Red Cell Distribution Width 13.3 % (12.1-15.2)
[2024-05-20 11:19] LABS: PT Prothrombin Time 13.1 SECONDS (9.4-12.5); Protime INR 1.25
[2024-05-20 11:34] LABS: Albumin 3.3 g/dL (3.4-5.0); Albumin/Globulin Ratio 1.1 (1.1-1.8); Anion Gap 7.1 mEq/L (5.0-15.0); Bilirubin Direct 0.2 mg/dL (0-0.2); Bilirubin Indirect, Calculated 0.4 mg/dL (0.2-0.8); Bilirubin Total 0.6 mg/dL (0.2-1.0); Globulin 2.9 g/dL (2.3-3.5); Magnesium 2.1 mg/dL (1.6-2.4); Potassium 4.1 mEq/L (3.5-5.1); Protein, Total 6.2 g/dL (6.4-8.2); Troponin High Sensitivity 4.9 pg/mL (<58.9)
--- NOTE | 2024-05-20 11:44 | RAD REPORT ---
EXAMINATION: ONE VIEW CHEST XR CLINICAL INDICATION: COUGH TECHNIQUE: Frontal chest projection is submitted. Examination is limited by patient positioning and t echnique. COMPARISON: 05/02/2023 FINDINGS: The lungs are well inflated and clear. The heart is normal in size. No displaced fractures identified . IMPRESSION: No acute intrathoracic abnormalities.
--- NOTE | 2024-05-20 11:50 | ER ---
Nurse's Notes [facility] Name: fAshin Jeffrey Age: 58 yrs Sex: Male : 1965 Arrival Date: 05/20/2024 Time: 10:00 Bed 18 Private MD: Diagnosis: Hypotension, unspecified;Weakness;Syncope Near;Bradycardia, unspecified Presentation: 05/20 10:15 Chief complaint: EMS states: overall feeling of not feeling good, pain i n shoulder, kj2 difficulty breathing. Coronavirus screen: Client denies travel out of the [place] in the last 14 days. Ebola Screen: No symptoms or risks identified at this time. Initial Sepsis Screen: Does the patient meet any 2 criteria? No. Patient's initial sepsis screen is negative. Does the patient have a suspected source of infection? No. Patient's initial sepsis screen is negative. Risk Assessment: Do you want to hurt yourself or someone else? Patient reports no desire to harm self or others. Onset of symptoms was May 20, 2024. 10:15 Method Of Arrival: EMS: [facility] kj2 10:15 Acuity: ETELVINA 3 kj2 Triage Assessment: 10:15 General: Appears in no apparent distress. Behavior is calm, cooperative, quiet. Pain: kj2 Complains of pain in left shoulder Pain currently is 4 out of 10 on a pain scale. Neuro: Level of Consciousness is awake, alert, obeys commands, Oriented to person, place, time, situation. Cardiovascular: Patient's skin is warm and dry. Respiratory: Airway is patent Respiratory effort is unlabored. GI: No signs and/or symptoms were reported involving the gastrointestinal system. : No signs and/or symptoms were reported regarding the genitourinary system. Historical: - Allergies: 10:48 Fentanyl; kj2 - Immunization history:: Adult Immunizations unknown. - Infectious Disease History:: Denies. - Social history:: Smoking status: Patient reports the use of cigarette tobacco products, unknown amount. Assessment: 10:15 General: see triage assessment. kj2 11:15 Reassessment: Patient appears in no apparent distress at this time. Patient and/or kj2 family updated on plan of care and expected duration. Pain level reassessed. Patient is alert, oriented x 3, equal unlabored respirations, skin warm/dry/pink. 13:25 Reassessment: Patient appears in no apparent distress at this time. Patient and/or kj2 family updated on plan of care and expected duration. Pain level reassessed. Patient is alert, oriented x 3, equal unlabored respirations, skin warm/dry/pink. 14:22 Reassessment: Patient appears in no apparent distress at this time. Patient and/or kj2 family updated on plan of care and expected duration. Pain level reassessed. Patient is alert, oriented x 3, equal unlabored respirations, skin warm/dry/pink. 15:15 Reassessment: Patient appears in no apparent distress at this time. Patient and/or kj2 family updated on plan of care and expected duration. Pain level reassessed. Patient is alert, oriented x 3, equal unlabored respirations, skin warm/dry/pink. Vital Signs: 10:15 BP 116 / 80; Pulse 54; Resp 20; Temp 98; Pulse Ox 97% on R/A; Weight 86.18 kg; Height 5 kj2 ft. 10 in. ; Pain 4/10; 13:25 BP 109 / 78; Pulse 52; Resp 20; Pulse Ox 97% on R/A; kj2 15:15 BP 126 / 72; Pulse 48; Resp 18; Temp 98; Pulse Ox 99% on R/A; kj2 10:15 Body Mass Index 27.26 (86.18 kg, 177.8 cm) kj2 10:15 Pain Scale: Adult kj2 ED Course: 10:30 Patient arrived in ED. ss 10:37 Owen Renee MD is Attending Physician. jose carlos 10:43 Valeria Victoria, RN is Primary Nurse. kj2 10:48 Triage completed. kj2 11:34 XRAY Chest (1 view) In Process Unspecified. EDMS 11:44 CT Head Brain wo Cont In Process Unspecified. EDMS 11:48 Gonzalez Woodson is Hospitalizing Provider. jose carlos 11:53 CT Chest For PE Angio In Process Unspecified. EDMS 11:55 CT Abd/Pelvis - IV Contrast Only In Process Unspecified. EDMS Administered Medications: 11:18 Drug: NS 0.9% IV 1000 ml IV at 1 bolus Per protocol; to be given as a bolus over 60 kj2 minutes Route: IV; Rate: 1 bolus; Site: right antecubital; 14:20 Follow up: IV Status: Completed infusion; IV Intake: 1000ml kj2 11:19 Drug: Famotidine IVP 20 mg IVP once; dilute with 10 mL 0.9% NaCl; give over 2 minutes kj2 Route: IVP; Site: right antecubital; 14:21 Follow up: Response: No adverse reaction kj2 12:20 Drug: NS 0.9% IV 1000 ml IV at 1 bolus Per protocol; to be given as a bolus over 60 kj2 minutes Route: IV; Rate: 1 bolus; Site: right antecubital; 14:22 Follow up: IV Status: Completed infusion; IV Intake: 1000ml kj2 Intake: 14:20 IV: 1000ml; Total: 1000ml. kj2 14:22 IV: 1000ml; Total: 2000ml. kj2 Outcome: 11:50 Decision to Hospitalize by Provider. jose carlos 13:00 Admitted to ER Hold. [facility] for [facility] documentation. kj2 13:00 Condition: stable kj2 13:00 Discharge instructions given to patient, Instructed on Admission 18:53 Patient left the ED. ss Signatures: Dispatcher [employer] EDMI Owen Renee MD MD cha Blanchard, Shelby, RN RN Valeria Victoria, MARVIN RN kj2 Corrections: (The following items were deleted from the chart) 11:27 11:19 NS 0.9% IV 1000 ml IV at 1 bolus in right antecubital kj2 kj2
--- NOTE | 2024-05-20 11:50 | EDPHYS ---
Physician Documentation [facility] Name: Afshin Jeffrey Age: 58 yrs Sex: Male : 1965 Arrival Date: 05/20/2024 Time: 10:00 Bed 18 Private MD: ED Physician Owen Renee HPI: 05/20 10:46 This 58 yrs old Male presents to ER via Unassigned with complaints of jose carlos Breathing Difficulty. 10:46 The patient has shortness of breath with light activity. jose carlos Historical: - Allergies: 10:48 Fentanyl; kj2 - Immunization history:: Adult Immunizations unknown. - Infectious Disease History:: Denies. - Social history:: Smoking status: Patient reports the use of cigarette tobacco products, unknown amount. ROS: 10:48 Constitutional: Negative for fever, chills, and weight loss, Eyes: Negative for injury, jose carlos pain, redness, and discharge, ENT: Negative for injury, pain, and discharge, Neck: Negative for injury, pain, and swelling, Cardiovascular: Negative for chest pain, palpitations, and edema, Abdomen/GI: Negative for abdominal pain, nausea, vomiting, diarrhea, and constipation, Back: Negative for injury and pain, : Negative for injury, bleeding, discharge, and swelling, MS/Extremity: Negative for injury and deformity, Skin: Negative for injury, rash, and discoloration, Psych: Negative for depression, anxiety, suicide ideation, homicidal ideation, and hallucinations, Allergy/Immunology: Negative for hives, rash, and allergies, Endocrine: Negative for neck swelling, polydipsia, polyuria, polyphagia, and marked weight changes, Hematologic/Lymphatic: Negative for swollen nodes, abnormal bleeding, and unusual bruising, 10:48 Respiratory: Positive for cough, shortness of breath, 10:48 Neuro: Positive for near syncope, weakness, Exam: 10:48 Constitutional: This is a well developed, well nourished patient who is awake, alert, jose acrlos and in no acute distress. Head/Face: Normocephalic, atraumatic. Eyes: Pupils equal round and reactive to light, extra-ocular motions intact. Lids and lashes normal. Conjunctiva and sclera are non-icteric and not injected. Cornea within normal limits. Periorbital areas with no swelling, redness, or edema. ENT: Nares patent. No nasal discharge, no septal abnormalities noted. Tympanic membranes are normal and external auditory canals are clear. Oropharynx with no redness, swelling, or masses, exudates, or evidence of obstruction, uvula midline. Mucous membranes moist. Neck: Trachea midline, no thyromegaly or masses palpated, and no cervical lymphadenopathy. Supple, full range of motion without nuchal rigidity, or vertebral point tenderness. No Meningismus. Chest/axilla: Normal chest wall appearance and motion. Nontender with no deformity. No lesions are appreciated. Cardiovascular: Regular rate and rhythm with a normal S1 and S2. No gallops, murmurs, or rubs. Normal PMI, no JVD. No pulse deficits. Respiratory: Lungs have equal breath sounds bilaterally, clear to auscultation and percussion. No rales, rhonchi or wheezes noted. No increased work of breathing, no retractions or nasal flaring. Abdomen/GI: Soft, non-tender, with normal bowel sounds. No distension or tympany. No guarding or rebound. No evidence of tenderness throughout. Back: No spinal tenderness. No costovertebral tenderness. Full range of motion. Male : Normal genitalia with no discharge or lesions. Skin: Warm, dry with normal turgor. Normal color with no rashes, no lesions, and no evidence of cellulitis. MS/ Extremity: Pulses equal, no cyanosis. Neurovascular intact. Full, normal range of motion., bilateral aka Neuro: Awake and alert, GCS 15, oriented to person, place, time, and situation. Cranial nerves II-XII grossly intact. Motor strength 5/5 in all extremities. Sensory grossly intact. Cerebellar exam normal. Normal gait. Psych: Awake, alert, with orientation to person, place and time. Behavior, mood, and affect are within normal limits. 10:48 ECG was reviewed by the Attending Physician. 10:50 ECG was reviewed by the Attending Physician. jose carlos Vital Signs: 10:15 BP 116 / 80; Pulse 54; Resp 20; Temp 98; Pulse Ox 97% on R/A; Weight 86.18 kg; Height 5 kj2 ft. 10 in. ; Pain 4/10; 13:25 BP 109 / 78; Pulse 52; Resp 20; Pulse Ox 97% on R/A; kj2 15:15 BP 126 / 72; Pulse 48; Resp 18; Temp 98; Pulse Ox 99% on R/A; kj2 10:15 Body Mass Index 27.26 (86.18 kg, 177.8 cm) kj2 10:15 Pain Scale: Adult kj2 MDM: 10:37 Medical Screening Exam initiated jose carlos 10:50 Differential diagnosis: Anemia Anxiety Reaction asthma, Bronchitis CHF exacerbation, jose carlos Chronic Obstructive Pulmonary Disease Myocardial Infarction pneumonia, Pneumothorax pulmonary edema, Pulmonary Embolism reactive airway disease, Sepsis Unstable Angina. Antibiotic administration: Not indicated. Immunization status: Influenza vaccine: within last 5 years. Data reviewed: vital signs, nurses notes, EMS record, lab test result(s), EKG, radiologic studies, CT scan, plain films. Consideration of Admission/Observation Escalation of care including admission/observation considered. I considered the following discharge prescriptions or medication management in the emergency department Medications were administered in the Emergency Department. See MAR. Test considered but Not performed: Ultrasound no 2 d echo. 05/20 10:42 Order name: Basic Metabolic Panel; Complete Time: 11:43 [facility] 05/20 10:42 Order name: CBC with Diff; Complete Time: 11:43 [facility] 05/20 10:42 Order name: LFT's; Complete Time: 11:43 [facility] 05/20 10:42 Order name: Magnesium; Complete Time: 11:43 [facility] 05/20 10:42 Order name: NT PRO-BNP; Complete Time: 11:43 [facility] 05/20 10:42 Order name: PT-INR; Complete Time: 11:43 [facility] 05/20 10:42 Order name: Troponin HS; Complete Time: 11:43 [facility] 05/20 10:42 Order name: Urinalysis w/ reflexes; Complete Time: 14:27 [facility] 05/20 10:42 Order name: Lipase; Complete Time: 11:43 [facility] 05/20 10:42 Order name: Type And Screen; Complete Time: 14:27 [facility] 05/20 12:05 Order name: ABO/RH no charge; Complete Time: 12:15 [facility] 05/20 14:32 Order name: PTT, Activated Partial Thromb; Complete Time: 15:45 [facility] 05/20 14:32 Order name: Basic Metabolic Panel [facility] 05/20 14:32 Order name: Basic Metabolic Panel [facility] 05/20 14:32 Order name: Basic Metabolic Panel [facility] 05/20 14:32 Order name: Basic Metabolic Panel [facility] 05/20 14:32 Order name: CBC with Automated Diff [facility] 05/20 14:32 Order name: CBC with Automated Diff [facility] 05/20 14:32 Order name: CBC with Automated Diff [facility] 05/20 14:32 Order name: CBC with Automated Diff [facility] 05/20 14:32 Order name: Lipid Profile [facility] 05/20 14:32 Order name: Lipid Profile; Complete Time: 15:45 [facility] 05/20 14:32 Order name: Troponin High Sensitivity [facility] 05/20 14:32 Order name: Troponin High Sensitivity; Complete Time: 15:45 [facility] 05/20 14:32 Order name: Troponin High Sensitivity [facility] 05/20 14:32 Order name: Troponin High Sensitivity [facility] 05/20 10:42 Order name: XRAY Chest (1 view); Complete Time: 12:15 [facility] 05/20 10:42 Order name: CT Head Brain wo Cont; Complete Time: 12:15 [facility] 05/20 10:48 Order name: CT Chest For PE Angio; Complete Time: 12:15 [facility] 05/20 10:48 Order name: CT Abd/Pelvis - IV Contrast Only; Complete Time: 12:15 [facility] 05/20 14:32 Order name: Echo with Doppler [facility] 05/20 14:32 Order name: CONS Physician Consult [facility] 05/20 10:42 Order name: Cardiac monitoring; Complete Time: 11:56 [facility] 05/20 10:42 Order name: EKG - Nurse/Tech; Complete Time: 11:56 [facility] 05/20 10:42 Order name: IV Saline Lock; Complete Time: 11:56 [facility] 05/20 10:42 Order name: Labs collected and sent; Complete Time: 11:56 [facility] 05/20 10:42 Order name: O2 Per Protocol; Complete Time: 11:56 [facility] 05/20 10:42 Order name: O2 Sat Monitoring; Complete Time: 11: [facility] 05/20 11:10 Order name: Labs - recollect needed: recollect type and screen reband pt; Complete bd Time: 11:27 EC:50 Rate is 54 beats/min. Rhythm is regular. QRS [place] is Normal. [place] interval is normal. QRS jose carlos interval is normal. QT interval is normal. No Q waves. T waves are Normal. No ST changes noted. Clinical impression: Sinus bradycardia and No evidence of ischemia. Interpreted by me. Reviewed by me. Administered Medications: 11:18 Drug: NS 0.9% IV 1000 ml IV at 1 bolus Per protocol; to be given as a bolus over 60 kj2 minutes Route: IV; Rate: 1 bolus; Site: right antecubital; 14:20 Follow up: IV Status: Completed infusion; IV Intake: 1000ml kj2 11:19 Drug: Famotidine IVP 20 mg IVP once; dilute with 10 mL 0.9% NaCl; give over 2 minutes kj2 Route: IVP; Site: right antecubital; 14:21 Follow up: Response: No adverse reaction kj2 12:20 Drug: NS 0.9% IV 1000 ml IV at 1 bolus Per protocol; to be given as a bolus over 60 kj2 minutes Route: IV; Rate: 1 bolus; Site: right antecubital; 14:22 Follow up: IV Status: Completed infusion; IV Intake: 1000ml kj2 Disposition Summary: 05/20/24 11:50 Hospitalization Ordered Notes: Hospitalization Status: Observation jose carlos Provider: Gonzalez Woodson cha Condition: Fair jose carlos Problem: new jose carlos Symptoms: have improved jose carlos Bed/Room Type: Standard jose carlos Location: Telemetry/MedSurg (observation)(05/20/24 15:45) bd Room Assignment: 209(05/20/24 15:45) bd Diagnosis - Hypotension, unspecified jose carlos - Weakness jose carlos - Syncope Near jose carlos - Bradycardia, unspecified jose carlos Forms: - Medication Reconciliation Form jose carlos - SBAR form jose carlos - Leadership Thank You Letter jose carlos Signatures: Dispatcher [employer] EDMS Jodie Cormier Corey, MD MD cha Waters, Shelly, REINFORCING IRON WORKER HELPER-C REINFORCING IRON WORKER HELPER-Csnw Ana Castrejon, RN RN kb3 Valeria Victoria, RN RN kj2 Corrections: (The following items were deleted from the chart) 10:44 10:44 Chest Single View+RAD.RAD.BRZ ordered. EDMS EDMS 10:44 10:44 Head Brain Wo Cont+CT.RAD.BRZ ordered. EDMS EDMS 10:44 10:44 Chest Abdomen Pelvis Wo Con+CT.RAD.BRZ ordered. EDMS EDMS 15:25 11:50 Telemetry/MedSurg (Inpatient) jose carlos kb3 15:25 11:50 jose carlos kb3 15:45 15:25 [facility] ER HOLD kb3 bd 15:45 15:25 ERHOLD- kb3 bd
--- NOTE | 2024-05-20 12:03 | RAD REPORT ---
EXAM: CT brain without contrast HISTORY: DIZZINESS COMPARISON: None TECHNIQUE: Multiple contiguous axial images were obtained and a CT of the brain without contrast. Sag ittal and coronal reformats were performed. One or more of the following dose reduction techniques were used: Automated exposure control, adjust ment of the mA and/or kV according to patient size, and/or iterative reconstruction. FINDINGS: No evidence of hydrocephalus, intracranial hemorrhage, or extra-axial fluid collection. The brain is normal in morphology. No evidence of midline shift or areas of brain edema. The calvarium is intact. The visualized paranasal sinuses and mastoid air cells are essentially clear . IMPRESSION: No evidence of acute intracranial abnormality.
--- NOTE | 2024-05-20 12:08 | RAD REPORT ---
EXAMINATION: CTA CHEST PE CLINICAL INDICATION: DYSPNEA TECHNIQUE: This examination was performed according to an angiographic protocol with 3D post-processi ng. This involves 3D reconstructions, MIPs, volume rendered images and/or shaded surface rendering. One or more of the following dose reduction techniques were used: Automated exposure control, adjustm ent of the mA and/or kV according to patient size, and/or iterative reconstruction. Unless otherwise specified, incidental findings do not require dedicated imaging follow-up. COMPARISON: 05/04/2023 FINDINGS: PULMONARY ARTERIES: Normal caliber. No evidence of pulmonary emboli to the subsegmental level. THORACIC AORTA: Normal caliber and configuration. LUNGS: No evidence of airspace or interstitial process. No nodules. Mild diffuse COPD. PLEURA: No pleural effusion. No pneumothorax. MEDIASTINUM AND LYMPH NODES: No mediastinal mass or fluid collection. Normal size mediastinal, hilar, and axillary lymph nodes. OSSEOUS STRUCTURES AND CHEST WALL: Intact. UPPER ABDOMEN: Mildly patulous esophagus noted. IMPRESSION: No evidence of pulmonary emboli to the subsegmental level. Mild COPD.
--- NOTE | 2024-05-20 12:13 | RAD REPORT ---
EXAMINATION: CT ABDOMEN AND PELVIS WITH CONTRAST CLINICAL INDICATION: ABD PAIN TECHNIQUE: CT abdomen and pelvis was performed, after the administration of IV contrast, as per [facility] protocol. Axial, sagittal and coronal reconstructions were obtained. One or more of the following dose reduction techniques were used: Automated exposure control, adjustment of the mA and k V according to patient size, and iterative reconstruction. Unless otherwise specified, incidental findings do not require dedicated imaging follow-up. COMPARISON: No prior exam. FINDINGS: LOWER CHEST: The visualized lung bases are clear. LIVER: Normal in size and contour. No focal lesion. Grossly unremarkable gallbladder. SPLEEN: Normal size. No focal lesion. PANCREAS: No mass, ductal dilation, or anay-pancreatic fluid. ADRENALS: Normal; no mass. KIDNEYS: Normal size and contour. No hydronephrosis. GASTROINTESTINAL TRACT: No evidence of free air, significant intra-abdominal free fluid, bowel obstru ction or abscess. APPENDIX: Normal appendix. LYMPH NODES: No lymphadenopathy. MUSCULOSKELETAL: Mild multilevel spinal degenerative changes. ADDITIONAL FINDINGS: Moderate aortoiliac atherosclerosis with right iliac stent. IMPRESSION: No acute or concerning abnormalities seen in the abdomen or pelvis.
[2024-05-20 13:32] LABS: Specific Gravity 1.028 (1.005-1.030); Sqamous Epithelial None Seen /HPF (None Seen); Urine Bacteria None Seen /HPF (<20); Urine Bilirubin NEGATIVE (Negative); Urine Blood Negative (Negative); Urine Clarity Clear (Clear); Urine Color Colorless (Yellow); Urine Culture Reflex Order NOT NEEDED; Urine Glucose NEGATIVE (Negative); Urine Ketones NEGATIVE (Negative); Urine Microscopic Reflex YN ORDER UMIC; Urine Mucus Slight /HPF (None Seen); Urine Nitrite NEGATIVE (Negative); Urine Protein NEGATIVE (Negative); Urine RBC None Seen /HPF (None Seen); Urine Urobilinogen Normal (Normal); Urine WBC <5 /HPF (<5); Urine pH 6.5 (5.0-7.0)
[2024-05-20] MEDS ORDERED: NITROGLYCERIN 0.4 MG/TAB SL PRN (14:22)
--- NOTE | 2024-05-20 14:22 | P.HP ---
Certification for Inpatient Patient admitted to: Inpatient With expected LOS: >2 Midnights Patient will require the following post-hospital care: None Practitioner: I am a practitioner with admitting privileges, knowledge of patient current condition, hospital course, and medical plan of care. Services: Services provided to patient in accordance with Admission requirements found in Title 42 Section 412.3 of the Code of Federal Regulations Patient History Date of Service: 05/20/24 Reason for admission: Symptomatic bradycardia, syncope History of Present Illness: is a 58-year-old gentleman with a past medical history of coronary artery disease, hypertension, COPD, and tobacco dependence. He had an echo and a cardiac cath per Dr. Rodriguez in April 2023. The echo showed a normal EF of 60 to 65%, normal wall motion, grade 1 diastolic dysfunction, and mild concentric left ventricular hypertrophy. 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 He presented to the emergency department today with a history of syncope with nausea. On the 3-lead monitor in his room he has normal sinus bradycardia between 48 and 52 bpm. His most recent med list does not include a beta-beena. He denies chest pain and states his nausea has resolved. He will be admitted to the hospital on telemetry with cardiology evaluation. Allergies No Known Allergies Allergy (Unverified 05/02/23 15:27) Home medications list reviewed: Yes Home Medications: Aspirin [Aspirin EC] 81 mg PO DAILY 05/02/23 Famotidine 20 mg PO BID 05/02/23 Gabapentin 600 mg PO BID 05/02/23 Losartan Potassium 50 mg PO DAILY 05/02/23 Metoprolol Succinate 25 mg PO DAILY 05/02/23 Nicotine [Nicotine Patch] 21 mg TD DAILY 05/02/23 Nitroglycerin 0.4 mg SL Q5MX3, Q15MX1, Q30M PRN 05/02/23 Rosuvastatin Calcium 20 mg PO DAILY 05/02/23 Tizanidine HCl 2 mg PO BEDTIME 05/02/23 Isosorbide Mononitrate [Isosorbide Mononitrate ER] 30 mg PO DAILY 30 Days #30 tab 05/04/23 Nitroglycerin [Nitrostat*] 0.4 mg SL UD PRN tab 05/04/23 Rosuvastatin [Crestor*] 40 mg PO BEDTIME tab 05/04/23 - Past Medical/Surgical History Has patient received pneumonia vaccine in the past: No Diabetic: No -: HTN -: Hypoglycemic -: Neuropathy -: Tobacco abuse -: Heart Stents x4 -: Leg stents -: ankle fusion -: Knee surgery Psychosocial/ Personal History: Lives at home with his . Daughter at bedside. - Social History Smoking Status: Current every day smoker Alcohol use: No CD- Drugs: No Caffeine use: No Place of Residence: Home Review of Systems 10-point ROS is otherwise unremarkable General: Malaise Eyes: Unremarkable ENT: Unremarkable Respiratory: Unremarkable Gastrointestinal: Nausea, Vomiting, As per HPI Genitourinary: Unremarkable Musculoskeletal: Unremarkable Integumentary: Unremarkable Neurological: Unremarkable Lymphatics: Unremarkable Physical Examination - Physical Exam General: Alert, In no apparent distress, Oriented x3 HEENT: Other (Edentulous) Neck: Supple Respiratory: Clear to auscultation bilaterally Cardiovascular: Regular rate/rhythm, Normal S1 S2 (Bradycardic ) Capillary refill: <2 Seconds Gastrointestinal: Normal bowel sounds, Soft and benign Musculoskeletal: No clubbing, No swelling Integumentary: No rashes Neurological: Normal speech, Normal tone, Normal affect Lymphatics: No axilla or inguinal lymphadenopathy External genitalia: Deferred Rectal: Deferred - Studies Laboratory Data (last 24 hrs) 05/20/24 05/20/24 05/20/24 10:55 10:55 10:55 WBC 6.10 Hgb 13.1 L Hct 36.9 L Plt Count 150 L PT 13.1 H INR 1.25 Sodium 138 Potassium 4.1 BUN 25 H Creatinine 1.06 Glucose 151 H Magnesium 2.1 Total Bilirubin 0.6 AST 15 ALT 25 Alkaline Phosphatase 68 Lipase 34 Assessment and Plan - Plan Symptomatic bradycardia with syncope Consult cardiology Admit to telemetry Hold beta-blockers/calcium channel blockers Serial cardiac enzymes Pain control Pt had recent ECHO and Cath showing mod coronary artery disease. May need RCA intervention, will defer to Cards tobacco abuse nicoderm patch recommend cessation VTE/GI prophylaxis CODE STATUS: Full Discharge Plan: Home Plan to discharge in: 48 Hours - Advance Directives Does patient have a Living Will: Yes Does patient have a Durable POA for Healthcare: No - Code Status/Comfort Care Code Status Assessed: Yes (Full)
[2024-05-20 15:42] VITALS: BMI 27.2
[2024-05-20] MEDS: GABAPENTIN 300 MG CAP PO SCH (20:48)
[2024-05-20] MEDS: FAMOTIDINE 20 MG TAB PO SCH (20:48)
[2024-05-20] MEDS: ENOXAPARIN 80 MG/0.8 ML SQ SCH (20:48)
[2024-05-20] MEDS: ROSUVASTATIN 10 MG TAB PO SCH (20:48)
[2024-05-21 06:26] LABS: Absolute Eosinophils 0.1 K/uL (0-0.5); Absolute Lymphocytes (CBC) 1.7 K/uL (0.7-4.9); Absolute Monocytes 0.3 K/uL (0.1-1.3); Absolute Neutrophil 2.2 K/uL (1.8-8.0); Basophils % 0.7 % (0-1.3); Eosinophils % 1.8 % (0-4.4); Hematocrit 36.7 % (39.6-49.0); Lymphocytes % 40.3 % (15.3-44.8); MCH 34.4 pg (27.0-35.0); MCHC 35.3 g/dL (32.0-36.0); MCV 97.5 fL (80-100); MPV 7.8 fL (7.6-11.3); Monocytes % 6.5 % (3.3-12.3); Neutrophils % 50.7 % (41.7-73.7); Platelets 156 thou/uL (152-406); RBC Red Blood Cell Count 3.77 M/uL (4.33-5.43)
[2024-05-21 06:39] LABS: Anion Gap 7.8 mEq/L (5.0-15.0); Potassium 3.8 mEq/L (3.5-5.1)
--- NOTE | 2024-05-21 07:49 | RAD REPORT ---
EXAMINATION: US CAROTID DUPLEX CLINICAL INDICATION: Syncope TECHNIQUE: Real-time grayscale, color flow and spectral Doppler sonographic images were obtained of t extracranial carotid system using a linear transducer. COMPARISON: No prior exam. FINDINGS: The velocity of the right internal carotid artery 80 cm/s The right ICA/CCA ratio normal The velocity left internal carotid artery 79 cm/s The left ICA/CCA ratio normal Mild plaque is present within the carotid arteries Vertebral arteries demonstrate anterograde flow. No significant abnormality external carotid arteries Methods for NASCET criteria: mild stenosis, 0% to 49%; moderate, 50% to 69%; severe stenosis, 70% to 99% IMPRESSION: No significant vascular abnormality displayed
[2024-05-21 07:54] VITALS: O2SAT 96
[2024-05-21 08:36] VITALS: BP 142/92; TEMP 97.8
[2024-05-21] MEDS: ASPIRIN EC 81 MG TAB PO SCH (08:56)
[2024-05-21] MEDS: CLOPIDOGREL 75 MG TABLET PO SCH (08:56)
[2024-05-21] MEDS: LOSARTAN POTASSIUM 50 MG TABLET PO SCH (08:56)
[2024-05-21] MEDS: NICOTINE 14 MG/PAT TD SCH (08:56)
[2024-05-21] MEDS ORDERED: REGADENOSON 0.4 MG/5 ML SYR IV ONE (11:06)
--- NOTE | 2024-05-21 12:10 | RAD REPORT ---
EXAM :Rest Stress Cardiac Imaging CLINICAL HISTORY: Chest pain TECHNIQUE: Rest images: 10.3 mCi technetium 99m sestamibi administered intravenously. Stress images: 28.9 mCi of technetium 99m sestamibi administered intravenously. Cardiac SPECT images obtained COMPARISON: None. FINDINGS: There is a large area of diminished radiotracer uptake involving the inferior left ventricular myocar dium on stress and rest images. Left ventricular ejection fraction equals 61% IMPRESSION: Large apparent fixed perfusion defect involving the inferior left ventricular myocardium could repres ent an infarct or attenuation from the diaphragm. There is no evidence of stress-induced ischemia
--- NOTE | 2024-05-21 12:28 | P.CNS ---
Date of Consult: 05/21/24 Chief Complaint: Symptomatic bradycardia, syncope History of Present Illness: Patient with PMH mild to moderate CAD, presented with near syncope, not feeling well, denies chest pain, no palpitations, no SOB, no JAQUEZ. Allergies No Known Allergies Allergy (Unverified 05/02/23 15:27) Home medications list reviewed: Yes Home Medications: Aspirin [Aspirin EC] 81 mg PO DAILY 05/02/23 Losartan Potassium 100 mg PO DAILY 05/02/23 Metoprolol Succinate 25 mg PO DAILY 05/02/23 Nitroglycerin 0.4 mg SL Q5MX3, Q15MX1, Q30M PRN 05/02/23 Rosuvastatin Calcium 20 mg PO BEDTIME 05/02/23 Tizanidine HCl 2 mg PO BEDTIME 05/02/23 Amlodipine [Norvasc*] 5 mg PO DAILY 05/20/24 Fexofenadine HCl 180 mg PO DAILY 05/20/24 Hydralazine HCl 25 mg PO DAILY 05/20/24 Tamsulosin [Flomax] 0.4 mg PO DAILY 05/20/24 Tramadol HCl [Ultram] 50 mg PO BID 05/20/24 - Past Medical/Surgical History Diabetic: No -: HTN -: Hypoglycemic -: Neuropathy -: Tobacco abuse -: Heart Stents x4 -: Leg stents -: ankle fusion -: Knee surgery Psychosocial/ Personal History: Lives at home with his . Daughter at bedside. - Social History Smoking Status: Current every day smoker Alcohol use: No CD- Drugs: No Caffeine use: Yes Place of Residence: Home Review of Systems 10-point ROS is otherwise unremarkable Physical Examination Temp Pulse Resp BP Pulse Ox 97.8 F 58 22 H 142/92 H 96 05/21/24 08:00 05/21/24 08:00 05/21/24 08:00 05/21/24 08:00 05/21/24 08:00 General: Alert, In no apparent distress HEENT: Atraumatic, PERRLA, Mucous membr. moist/pink, EOMI, Sclerae nonicteric Neck: Supple, 2+ carotid pulse no bruit, No LAD, Without JVD or thyroid abnormality Respiratory: Clear to auscultation bilaterally, Normal air movement Cardiovascular: Regular rate/rhythm, Normal S1 S2 Gastrointestinal: Normal bowel sounds, No tenderness Musculoskeletal: No tenderness Integumentary: No rashes Neurological: Normal gait, Normal speech, Normal tone, Normal affect Lymphatics: No axilla or inguinal lymphadenopathy - Problems (1) Bradycardia Current Visit: Yes Status: Acute Plan: [place] tele shows bradycardia with not signs of advanced heart block. continue to hold metoprolol outpatient evaluation with 14 days event monitor (2) CAD (coronary artery disease) Current Visit: Yes Status: Acute Plan: patient cardiac enzymes are negative x 3, recent coronary angiogram shows mild to moderate LAD/LCX disease and RCA small DIRECTOR OF TESTING, Patient stress test shows fixed inferior wall defect, no need for further cardiac work up.
--- NOTE | 2024-05-21 14:03 | TREADPHA ---
DX: CHEST PAIN Date of Study: 05/21/24 Ht: 5' 10 " Wt: 190 lb 0 oz Consulting Physician: MIKEY MEDICATIONS: ASPIRIN, PLAVIX, LOVENOX, COZAAR, NITROSTAT, CRESTOR HISTORY: HEART STENTS PHYSICIAL EXAMINATION: RESTING B.P.: 156/95 RESTING H.R.: 53 RESTING EKG: PROTOCOL: LEXISCAN EXERCISE TIME: 3:30 B.P. AT PEAK STRESS: 171/99 IMPRESSION: LEXISCAN INJECTED PER PROTOCOL. CARDIOLITE INJECTED. NO SUPRA VENTRICULAR TACHYCARDIA, VENTRICULAR TACHYCARDIA OR ARRHYTHMIA. NO CHEST PAIN. COMPLAINTS OF SHORTNESS OF BREATH
--- NOTE | 2024-05-21 14:23 | P.DS ---
Admission Date: 05/20/24 Discharge Date: 05/21/24 Disposition: ROUTINE DISCHARGE Discharge Condition: GOOD Reason for Admission: Symptomatic bradycardia, syncope Consultations: Dr. Marks Procedures: Lexiscan stress test Brief History of Present Illness: is a 58-year-old gentleman with a past medical history of coronary artery disease, hypertension, COPD, and tobacco dependence. He had an echo and a cardiac cath per Dr. Rodriguez in April 2023. The echo showed a normal EF of 60 to 65%, normal wall motion, grade 1 diastolic dysfunction, and mild concentric left ventricular hypertrophy. 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 He presented to the emergency department today with a history of syncope with nausea. On the 3-lead monitor in his room he has normal sinus bradycardia between 48 and 52 bpm. His most recent med list does not include a beta-beena. He denies chest pain and states his nausea has resolved. He will be admitted to the hospital on telemetry with cardiology evaluation. Hospital Course: Mr. Jeffrey did well over the course of his hospitalization. His stress test revealed a large fixed inferior wall defect. We have held his metoprolol and it is recommended he continue to hold it upon discharge. He should call for an appointment with Dr. Marks for an outpatient evaluation and a 14 day event monitor. Vital Signs/Physical Exam: Temp Pulse Resp BP Pulse Ox 97.8 F 58 22 H 142/92 H 96 05/21/24 08:00 05/21/24 08:00 05/21/24 08:00 05/21/24 08:00 05/21/24 08:00 General: Alert, In no apparent distress, Oriented x3 HEENT: Atraumatic, Normocephalic, Other (edentulous) Neck: Supple, 2+ carotid pulse no bruit Respiratory: Clear to auscultation bilaterally, Normal air movement Cardiovascular: Regular rate/rhythm (bradycardic) Capillary refill: <2 Seconds Gastrointestinal: Normal bowel sounds, Soft and benign Musculoskeletal: No clubbing, No swelling Integumentary: No rashes Neurological: Normal speech, Normal tone, Normal affect Lymphatics: No axilla or inguinal lymphadenopathy External genitalia: Deferred Rectal: Deferred Laboratory Data at Discharge: WBC 4.30 thou/uL (4.3-10.9) 05/21/24 05:43 Hgb 13.0 g/dL (13.6-17.9) L 05/21/24 05:43 Hct 36.7 % (39.6-49.0) L 05/21/24 05:43 Plt Count 156 thou/uL (152-406) 05/21/24 05:43 PT 13.1 SECONDS (9.4-12.5) H 05/20/24 10:55 INR 1.25 05/20/24 10:55 APTT 29.3 SECONDS (24.3-36.9) 05/20/24 14:55 Sodium 141 mEq/L (136-145) 05/21/24 05:43 Potassium 3.8 mEq/L (3.5-5.1) 05/21/24 05:43 BUN 21 mg/dL (7-18) H 05/21/24 05:43 Creatinine 0.82 mg/dL (0.70-1.30) 05/21/24 05:43 Glucose 102 mg/dL (74-106) 05/21/24 05:43 Magnesium 2.1 mg/dL (1.6-2.4) 05/20/24 10:55 Total Bilirubin 0.6 mg/dL (0.2-1.0) 05/20/24 10:55 AST 15 U/L (15-37) 05/20/24 10:55 ALT 25 U/L (16-61) 05/20/24 10:55 Alkaline Phosphatase 68 U/L (45-117) 05/20/24 10:55 Triglycerides 70 mg/dL (<150) 05/20/24 14:55 Cholesterol 97 mg/dL (<200) 05/20/24 14:55 HDL Cholesterol 37 mg/dL (40-60) L 05/20/24 14:55 Cholesterol/HDL Ratio 2.62 05/20/24 14:55 Lipase 34 U/L (13-75) 05/20/24 10:55 Home Medications: Aspirin [Aspirin EC] 81 mg PO DAILY 05/02/23 Losartan Potassium 100 mg PO DAILY 05/02/23 Nitroglycerin 0.4 mg SL Q5MX3, Q15MX1, Q30M PRN 05/02/23 Rosuvastatin Calcium 20 mg PO BEDTIME 05/02/23 Amlodipine [Norvasc*] 5 mg PO DAILY 05/20/24 Fexofenadine HCl 180 mg PO DAILY 05/20/24 Tamsulosin [Flomax*] 0.4 mg PO DAILY 05/20/24 Tramadol HCl [Ultram] 50 mg PO BID 05/20/24 Hydralazine HCl 25 mg PO BID #60 tab 05/21/24 New Medications: Hydralazine HCl 25 mg PO BID #60 tab Diet: AHA Activity: Ad rosita Followup: Ethan Khan DO [Primary Care Provider] - Vel Marks MD [ACTIVE - CAN ADMIT] -
--- NOTE | 2024-05-22 12:35 | EKG ---
Test Date: 2024-05-20 Test Time: 10:34:07 Mash Preparatory Operator: MACIEL MEASUREMENT RESULTS: Intervals: Rate: 54 MO: 164 QRSD: 82 QT: 462 QTc: 438 [place]: P: 78 MO: 164 QRS: 82 T: 69 INTERPRETIVE STATEMENTS: Sinus bradycardia Otherwise normal ECG Compared to ECG 05/02/2023 09:42:44 Sinus rhythm no longer present Electronically Signed On 05-22-24 12:31:48 BUSINESS ASSISTANT by Vel Marks
== END 2024-05-21 15:42 | disposition home or self-care (01) | DRG 310 ==
LOC: ER 10:00 → ERHOLD 14:22 → 2ND 18:18
PROVIDERS: ADMIT Internal Medicine; ATTEND Internal Medicine
DX: R00.1 Bradycardia, unspecified (principal); I95.9 Hypotension, unspecified; I10 Essential (primary) hypertension; I51.7 Cardiomegaly; J44.9 Chronic obstructive pulmonary disease, unspecified; I25.10 Atherosclerotic heart disease of native coronary artery without angina pectoris; F17.210 Nicotine dependence, cigarettes, uncomplicated; Z88.5 Allergy status to narcotic agent; Z79.82 Long term (current) use of aspirin; Z79.899 Other long term (current) drug therapy
CPT/HCPCS: 36415; 70450; 71045; 71275; 74177; 78452; 80048; 80061; 80076; 81001; 83690; 83735; 83880; 84484; 85025; 85610; 85730; 86850; 86900; 86901; 93005; 93017; 93880; 96361; 96374; 99285; A9500; J2785; J7030; Q9967